=== PATIENT | male | born 1995 | race Caucasian/White ===

== ENCOUNTER 2018-03-24 16:02 | Emergency (ER) | payer SELFPAY ==
[2018-03-24 16:48] LABS: BASO % 0.2 % (0-6); EOS % 0.5 % (0-6); GRAN % 69.6 % (47-80); HEMATOCRIT 38.5 % (42.0-52.0); HEMOGLOBIN 11.8 gm/dl (14.0-18.0); LYMPH % 15.1 % (16-45); MEAN CORPUSCULAR HGB CONC 30.6 g/dl (32-36); MEAN PLATELET VOLUME 8.8 fl (7.4-10.4); MONO % 14.6 % (0-9); PLATELET COUNT 484 K/uL (130-400); RED BLOOD COUNT 5.13 M/uL (4.40-5.70); RED CELL DISTRIBUTION WIDTH 16.3 % (11.5-14.5); WHITE BLOOD COUNT W/O DIFF 8.6 K/uL (4.2-12.2)
--- NOTE | 2018-03-24 16:56 | Emergency Department Record ---
History of Present Illness - General Chief Complaint: Cold Stated Complaint: COUGH/FEVER Time Seen by Provider: 03/24/18 16:29 Source: Patient Mode of Arrival: Ambulatory Limitations: No limitations - History of Present Illness Initial Comments: 23 yo male presents with cough on and off for a few months. Most recently is started again in the last 2 weeks. He has some fevers. Productive cough. sore throat. No rash. He is a smoker. No underlying lung disease. His sister is sick as well. He did cough so hard he vomited once. He recently gave plasma and was told he may have liver disease and is worried. He does not have a PCP. MD Complaint: Cough Onset/Timin -: Days(s) Severity: Moderate Consistency: Constant Improves With: Nothing Worsens With: Coughing Context: Recent illness, Recent URI Associated Symptoms: Cough, Fever, Nausea/vomiting Treatments Prior to Arrival: None - Related Data Previous Rx's Medication Instructions Recorded Amoxicillin 500Mg Capsule [Amoxil] 500 mg PO TID #30 tab 03/24/18 Benzonatate [Tessalon Perle] 100 mg PO Q8H #20 capsule 03/24/18 Allergies Allergy/AdvReac Type Severity Reaction Status Date / Time No Known Drug Allergies Allergy Verified 03/24/18 16:06 Travel Screening - Travel/Exposure Within Last 30 Days Have you traveled within the last 30 days?: No - Travel/Exposure Within Last Year Have you traveled outside the [place] in the last year?: No - Additonal Travel Details Have you been exposed to anyone with a communicable illness?: No - Travel Symptoms Symptom Screening: None Review of Systems Constitutional: Reports: Fever. Denies: Chills, Malaise, Weakness Eyes: Denies: Eye discharge ENT: Reports: Congestion, Throat pain. Denies: Ear pain Respiratory: Reports: Cough. Denies: Dyspnea, Hemoptysis, Stridor, Wheezes Cardiovascular: Denies: Chest pain, Palpitations, Syncope Endocrine: Denies: Fatigue, Polydipsia, Polyuria Gastrointestinal: Reports: Nausea, Vomiting. Denies: Abdominal pain, Diarrhea Genitourinary: Denies: Dysuria, Frequency, Hematuria Musculoskeletal: Denies: Arthralgia, Back pain, Myalgia, Neck pain Skin: Denies: Bruising, Change in color, Rash Neurological: Denies: Headache Psychiatric: Denies: Anxiety Hematological/Lymphatic: Denies: Blood Clots, Easy bleeding, Easy bruising Past Medical History - SOCIAL HISTORY Smoking Status: Current every day smoker Alcohol Use: None Drug Use: None - RESPIRATORY Hx Respiratory Disorders: No - CARDIOVASCULAR Hx Cardio Disorders: No - NEURO Hx Neuro Disorders: No - GI Hx GI Disorders: No - Hx Genitourinary Disorders: No - ENDOCRINE Hx Endocrine Disorders: No - MUSCULOSKELETAL Hx Musculoskeletal Disorders: No - PSYCH Hx Psych Problems: Yes Hx Anxiety: Yes - HEMATOLOGY/ONCOLOGY Hx Hematology/Oncology Disorders: No Family Medical History Any Significant Family History?: Yes *Diabetes Comment: Uncle Hx Resp Disorders: Father, Mother Physical Exam - General General Appearance: Alert, Oriented x3, Cooperative, No acute distress Limitations: No limitations - Head Head exam: Atraumatic, Normal inspection - Eye Eye exam: negative: Normal appearance (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 negative: Tonsillar erythema, Tonsillomegaly, Tonsillar exudate, R peritonsillar mass, L peritonsillar mass - Neck Neck exam: Normal inspection. negative: Lymphadenopathy - Respiratory Respiratory exam: Normal lung sounds bilaterally. negative: Respiratory distress, Rhonchi, Stridor, Wheezes - Cardiovascular Cardiovascular Exam: Regular rate, Normal rhythm, Normal heart sounds Peripheral Pulses: 3+: Radial (R), Radial (L) - GI/Abdominal GI/Abdominal exam: Soft. negative: Tenderness - Rectal Rectal exam: Deferred - exam: Deferred - Extremities Extremities exam: Normal inspection, Full ROM, Normal capillary refill. negative: Tenderness - Back Back exam: Denies: CVA tenderness (R), CVA tenderness (L) - Neurological Neurological exam: Alert, Oriented X3 - Psychiatric Psychiatric exam: Normal affect, Normal mood. negative: Agitated, Anxious - Skin Skin exam: Dry, Intact, Normal color, Warm Course Vital Signs 03/24/18 16:07 Temperature 98.8 F Pulse Rate 118 H Respiratory 20 Rate Blood Pressure 112/69 Pulse Ox 95 - Reevaluation(s) Reevaluation #1: Mild anemia of 11.8 with low MVC of 75 09/29/18 16:55 03/24/18 17:07 Strep is negative 03/24/18 17:23 No acute changes on the liver panel CXR was negative DC with Tessalon and Antibiotic for the productive cough. Medical Decision Making - Lab Data Result diagrams: 03/24/18 16:40 03/24/18 16:40 Disposition Disposition: Discharge Clinical Impression: Bronchitis Anemia Qualifiers: Anemia type: unspecified type Qualified Code(s): D64.9 - Anemia, unspecified Disposition: Home, Self-Care Condition: (1) Good Instructions: Acute Bronchitis (ED) Additional Instructions: Take the prescriptions provided today as directed. Call your family doctor. Call to schedule the next available appointment for a recheck. Return to ED if your symptoms worsen or if you have any new concerns. Review the final Emergency Record and test results with your doctor on follow up Prescriptions: Amoxicillin 500Mg Capsule [Amoxil] 500 mg PO TID #30 tab Benzonatate [Tessalon Perle] 100 mg PO Q8H #20 capsule Referrals: ANNA ANGEL [MEDICAL DOCTOR] - Forms: Patient Portal Access Time of Disposition: 17:25 Quality - Quality Measures Quality Measures: N/A - Blood Pressure Screening Does Patient Have Any of the Following: No Blood Pressure Classification: Normal BP Reading Systolic Measurement: 112 Diastolic Measurement: 69 Screening for High Blood Pressure: < Normal BP, F/U Not Required > [[id number]]
[2018-03-24 17:05] LABS: BLOOD UREA NITROGEN 7 mg/dL (6-20); CREATININE 0.9 mg/dL (0.7-1.2); EST GLOMERULAR FILTRATION RATE > 60 mL/min
[2018-03-24 17:06] LABS: TOTAL PROTEIN 7.6 g/dL (6.6-8.7)
[2018-03-24 17:08] LABS: GLUCOSE,RANDOM 97 mg/dL (74-109)
[2018-03-24 17:10] LABS: ALBUMIN 3.8 g/dL (4.0-5.0); ALT/SGPT 10 U/L (<41); AST/SGOT 13 U/L (10.0-50.0)
[2018-03-24 17:11] LABS: ALKALINE PHOSPHATASE 70 U/L (40-129)
--- NOTE | 2018-03-27 11:00 | RADIOLOGY REPORT ---
EXAM: CHEST, TWO VIEWS HISTORY: COUGH AND FEVER. TECHNIQUE: PA and lateral views of the chest were obtained. Comparison: None. FINDINGS: The cardiac silhouette is within normal size limits. No focal consolidation, pleural effusion, or pneumothorax. No definite acute osseous findings. IMPRESSION: NO ACUTE CHEST FINDINGS. JOB NUMBER: [id number] MTDD
== END 2018-03-24 17:43 | disposition home or self-care (01) ==
LOC: ER 16:02
DX: J20.9 Acute bronchitis, unspecified (principal); D64.9 Anemia, unspecified; R11.2 Nausea with vomiting, unspecified; F17.210 Nicotine dependence, cigarettes, uncomplicated
CPT/HCPCS: 71046; 80053; 85025; 87880; 99283; 99284